=== PATIENT | female | born 1995 | race Two or more races ===

== ENCOUNTER 2025-02-27 06:52 | Inpatient (IN) | payer MEDICAID, SELFPAY ==
[2025-02-27] VITALS (36 sets, daily range): BP systolic 105–143; BP diastolic 56–92; PULSE 77–114; RESP 16–98; TEMP 36.6–37.2; O2SAT 96–100; BMI 33.7
[2025-02-27 07:48] LABS: Basophils # (Auto) 0.1 Thou/mm3 (0.0-0.2); Basophils % (Auto) 1 % (0-2.5); Eosinophils # (Auto) 0.2 Thou/mm3 (0.0-0.5); Eosinophils % (Auto) 2 % (0-10); Hematocrit 38.8 % (36.0-46.0); Hemoglobin 12.6 g/dL (12.0-16.0); Immature Granulocytes Auto 0.18 Thou/mm3 (0.00-0.00); Lymphocytes # (Auto) 2.5 Thou/mm3 (1.0-4.8); Lymphocytes % (Auto) 25 % (10-50); Mean Corpuscular HGB Conc 32.5 g/dl (31.0-37.0); Mean Corpuscular Hemoglobin 24.6 pg (25.0-35.0); Mean Corpuscular Volume 76 fL (80-100); Monocytes # (Auto) 0.7 Thou/mm3 (0.0-0.8); Monocytes % (Auto) 7 % (0-12); Neutrophils # (Auto) 6.4 Thou/mm3 (1.8-7.7); Neutrophils % (Auto) 64 % (37-80); Nucleated Red Blood Cell # 0.00 Thou/mm3 (0.00-0.00); Nucleated Red Blood Cell % 0 /100 WBC (0); Platelet Count 324 Thou/mm3 (140-440); RDW Standard Deviation 71.7 fL (36.4-46.3); Red Blood Count 5.12 Miln/mm3 (4.00-5.20); White Blood Count 10.1 Thou/mm3 (3.6-11.0)
--- NOTE | 2025-02-27 08:42 | PD.LDHP ---
Documentation for date of: 02/27/25 OB Labor/Induct. HPI History of Present Illness Chief complaint: labor : 3 Para: 2 Term pregnancies: 2 pregnancies: 0 Living children: 2 History of Abortions: Spontaneous and Elective: 0 History of Vaginal deliveries: 2 History of sections: No History of : No Date of last menstrual period: 06/26/24 DARYL: 03/02/25 Gestational Age (weeks): 39 Gestational Age (days): 4 Gestational age based on last menstrual period: 35 History of present illness: 29 years old , patient of Dr Patel , comes at % cm dilation in labor Comments: patient states GBS is negative / confirmation done and is negative in Feb 2025 and she goes fast in active labor History of Present Dating criteria: other (per records from MD office ) Adequate Care: Yes Obstetrical complications: other (treated Chlamydia in august 2024 and negative in september 2024) Medical complications: none Labs Maternal Blood Type: O Pos Labs: Positive: Rubella Titre, Negative: RPR, Hepatitis B, HIV, Chlamydia and Gonorrhea and Unknown: Herpes Type 1, Herpes Type 2, Group Beta Strep and Covid-19 Review of Systems Review of Systems Systems Reviewed: All systems reviewed, normal except as documented Past Medical History Surgical History SURGICAL: Negative Section Meds Home Medications and Allergies Home Medications ?Medication ?Instructions ?Recorded ?Confirmed ?Type prenat.vits,matilda,[id number] 1 tab PO QDAY 05/15/20 02/27/25 History ferric maltol 30 mg capsule 30 mg PO BID 02/27/25 02/27/25 History ([place]) Allergies Allergy/AdvReac Type Severity Reaction Status Date / Time No Known Allergies Allergy Verified 02/27/25 07:21 OB Exam Physical Exam Vital signs: Temp Pulse Resp BP Pulse Ox O2 Del Method 97.8 F 82 18 119/59 L 100 Room Air 02/27/25 07:40 02/27/25 08:41 02/27/25 07:40 02/27/25 08:41 02/27/25 07:07 02/27/25 07:40 Narrative: Size equal to dates uterus non tender regular/ contractions non tender FHR is category 1 feta presentation is vertex cervix now 8 cm and intact , station -2 OB Results Labs 02/27/25 07:20 Labs: Short CBC 02/27/25 Range/Units 07:20 WBC 10.1 (3.6-11.0) Thou/mm3 Hgb 12.6 (12.0-16.0) g/dL Hct 38.8 (36.0-46.0) % Plt Count 324 (140-440) Thou/mm3 OB Assessment & Plan Assessment and Plan (1) Active labor at term: Status: Acute Additional Plan Induction method: none Plan: anticipate NVD Additional Plan Comment: 29 years old at 39.4 weeksin spontaneous labor, GBS negative , O Positive , Chlamydia treated in this and post treatment negative , patient progressing well .Anticipate vaginal delivery . Patient declines epidural
[2025-02-27] MEDS: OXYTOCIN in NS 20 units 20 UNIT/1,000 ML BAG 125 UNIT IV (09:42)
[2025-02-27] MEDS: LIDOCAINE HCL 1% 20 ML VIAL INFL (09:45)
[2025-02-27] MEDS: BENZO/LANO/ALOE (Dermoplast) 60 GM CAN 1 SPRAY TOP (09:50)
[2025-02-27] MEDS: IBUPROFEN TAB 400 MG TABLET 800 MG PO (09:58)
--- NOTE | 2025-02-27 10:26 | OBDSUM_ITS ---
Data ([facility]) Data Hx Section: No Maternal Blood Type: O Pos Rubella Titre: Positive RPR: Non-reactive Labs: Negative: HIV and Group Beta Strep : 3 Term: 2 : 0 Livin Abortions: Spontaneous & Theraputic: 0 Delivery Data ([facility]) Labor Data Initiation of labor: Spontaneous Induction/Augmentation Agent: Artificial ROM ROM date: 02/27/25 ROM time: 09:36 Amniotic membrane rupture type: Artificial Amniotic fluid description: Clear Delivery Data EDC: 03/02/25 Onset of labor date: 02/27/25 Onset of labor time: 04:00 Complete dilation date: 02/27/25 Complete dilation time: 09:36 delivery date: 02/27/25 [place] delivery time: 09:41 Gestational age (weeks): 39 Gestational age (days): 4 Placenta delivery date: 02/27/25 Placenta delivery time: 09:47 Stage 1 total time: Labor - Stage 1 Duration 5 hours and 36 minutes Delivered by: Roma Lyon Delivery nurse: [email or web address] Neworn nurse: [email or web address] Gem Technician at delivery: No Support person(s) at delivery: FOB Delivery Method Delivery method: Normal Vaginal Delivery Presentation: Vertex position: CECE Anesthesia Type Anesthesia Type: Local Delivery Room Medications Delivery room medications: Pitocin 20 u IV Placenta Placenta delivery description: Spontaneous Cord blood sent to lab: Yes cord blood collection: Cord Blood Type Episiotomy Episiotomy description: None Lacerations #1: Perineal: 1st degree Perineal repair Sutures used for repair: 3.0 Vicryl EBL Estimated blood loss (ml): 150 Umbilical Cord cord description: 3 Vessels Complications Complications: none [place] Data ([facility]) Data order: 1 [place]'s gender: Female Identification band number: [id number] weight (gms): 3185 g Weight (pounds): 7 lbs and 0.3 ozs length: 52.07 cm 1 minute: 7 5 minutes: 9
[2025-02-27 11:16] LABS: Syphilis Nonreactive (Nonreactive)
[2025-02-27 17:13] LABS: Basophils # (Auto) 0.1 Thou/mm3 (0.0-0.2); Basophils % (Auto) 0 % (0-2.5); Eosinophils # (Auto) 0.1 Thou/mm3 (0.0-0.5); Eosinophils % (Auto) 1 % (0-10); Hematocrit 35.0 % (36.0-46.0); Hemoglobin 11.1 g/dL (12.0-16.0); Immature Granulocytes Auto 0.14 Thou/mm3 (0.00-0.00); Lymphocytes # (Auto) 1.9 Thou/mm3 (1.0-4.8); Lymphocytes % (Auto) 13 % (10-50); Mean Corpuscular HGB Conc 31.7 g/dl (31.0-37.0); Mean Corpuscular Hemoglobin 24.3 pg (25.0-35.0); Mean Corpuscular Volume 77 fL (80-100); Monocytes # (Auto) 0.9 Thou/mm3 (0.0-0.8); Monocytes % (Auto) 6 % (0-12); Neutrophils # (Auto) 11.3 Thou/mm3 (1.8-7.7); Neutrophils % (Auto) 78 % (37-80); Nucleated Red Blood Cell # 0.00 Thou/mm3 (0.00-0.00); Nucleated Red Blood Cell % 0 /100 WBC (0); Platelet Count 297 Thou/mm3 (140-440); Red Blood Count 4.56 Miln/mm3 (4.00-5.20); White Blood Count 14.4 Thou/mm3 (3.6-11.0)
[2025-02-27] MEDS: ACETAMINOPHEN 325 MG TABLET PO (18:08)
[2025-02-28 00:31] VITALS: BP 106/71; PULSE 85; RESP 18; TEMP 36.9; O2SAT 95
[2025-02-28 04:11] VITALS: BP 103/67; PULSE 85; RESP 18; TEMP 36.9; O2SAT 95
--- NOTE | 2025-02-28 08:30 | ESPR_ITS ---
Subjective Subjective Interval history: The patient is a 29-year-old G3 now P3003 status post vaginal delivery 02/27/2025 at about 940 1 in the morning. She delivered by Dr. Lyon. She usually sees Dr Patel. She went natural and did not have an epidural. She states she had a small number of sutures. This morning she is resting comfortably in bed. Father the baby is at bedside as is her baby daughter. Patient states she is ambulating, voiding, passing flatus ,tolerating a general diet and she is breast-feeding. She would like to go home. Predelivery hemoglobin is 12.6 postdelivery hemoglobin 11.1. Exam Vital Signs Temp Pulse Resp BP Pulse Ox O2 Del Method 98.4 F 85 18 103/67 95 Room Air 02/28/25 04:11 02/28/25 04:11 02/28/25 04:11 02/28/25 04:11 02/28/25 04:11 02/28/25 04:11 Narrative Exam Patient is alert and orient x 3 in no apparent distress Fundus is firm at umbilicus Extremities show no significant edema or erythema Objective Labs 02/27/25 16:18 Labs: Laboratory Results - last 24 hr 02/27/25 02/27/25 07:20 16:18 WBC 14.4 H D RBC 4.56 Hgb 11.1 L Hct 35.0 L MCV 77 L MCH 24.3 L MCHC 31.7 RDW Std Deviation TNP Plt Count 297 Neut % (Auto) 78 Lymph % (Auto) 13 [place] % (Auto) 6 Eos % (Auto) 1 Baso % (Auto) 0 Neut # (Auto) 11.3 H Lymph # (Auto) 1.9 [place] # (Auto) 0.9 H Eos # (Auto) 0.1 Baso # (Auto) 0.1 Immature Gran # (Auto) 0.14 H Absolute Nucleated RBC 0.00 Immature Gran % 1 H Nucleated RBC % 0 Syphilis Serology Nonreactive Blood Type O Positive Antibody Screen NEGATIVE Assessment & Plan Problem List (1) care following vaginal delivery: Problem details: Patient is doing well. Discharged home post day #1 in stable condition discharge instructions given including pelvic rest x 6 weeks. Follow-up with Dr Patel in 4 to 6 weeks or as needed. Status: Acute Time Spent With Patient Time: Total time spent is greater than 50% in coordination of care (as documented) at patient's floor/unit and/or counseling patient: Time with patient: less than 15 minutes
--- NOTE | 2025-02-28 08:37 | ESDS_ITS ---
DS: Providers Provider Date of admission: 02/27/25 07:24 Primary care physician: Physician No Primary/Family Admitting Provider: Roma Lyon MD Attending Provider on Admission: Roma Lyon MD Consults: 02/27/25 10:29 Referral Routine Comment: Attending Provider on DC: Donita [facility] MD ([facility]) Discharging Provider: Donita Thomas MD ([facility]) Anticipated date of discharge: 02/28/25 DS: Diagnosis Discharge Diagnosis (1) care following vaginal delivery: Status: Acute Assessment & Plan: Patient is doing well. Discharge instructions get in. Follow-up with Dr Sandra paul in 6 weeks. Problem List Completed Was Problem List Reviewed/Reconciled?: Yes Summary/Hosp Course Brief History: The patient is a 29-year-old -0-0-2 presented at 39-4/7 weeks in active labor. She had an EDC of 03/02/2025. She was admitted by Dr. Lyon. Please see history and physical for further details. Hospital course: Patient was admitted she went on to deliver 02/27/2025 at about 940 in the morning. She delivered by Dr. Lyon. Please see delivery note for further details. By day #1 patient was doing well she was ambulating voiding tolerating a general diet. She was passing flatus and breast-feeding. She was discharged home day #1 in stable condition. Peripartum Data Delivery Method: Normal Vaginal Delivery Episiotomy Description: None complications: none Status at Discharge Cognitive/behavioral status at discharge: Patient's alert and orient x 3 no apparent distress Functional status at discharge: independent ambulation Overall status at discharge: patient is progressing back to baseline Time Spent with Patient Time attestation: Total time spent providing and/or coordinating discharge services: Time spent: Less than 30 minutes Specific discharge activities: Pelvic rest x 6 weeks. Call with heavy bleeding fevers or depression. Follow-up with Dr Patel in 4 to 6 weeks. Exam Vital Signs Temp Pulse Resp BP Pulse Ox O2 Del Method 98.4 F 85 18 103/67 95 Room Air 02/28/25 04:11 02/28/25 04:11 02/28/25 04:11 02/28/25 04:11 02/28/25 04:11 02/28/25 04:11 Narrative Exam Fundus firm, nontender at umbilicus Extremities show no significant edema or erythema Discharge Plan Plan Patient Disposition: HOME (Self Care) Disposition Comment: Stable Prescriptions/Referrals Prescriptions/Med Rec: New ibuprofen 600 mg Tablet 600 mg PO Q6HR PRN (Reason: Pain Or Fever > 101) Qty: 60 0RF Continued Accrufer 30 mg capsule 30 mg PO BID Patient Comments: Take 1 capsule by mouth twice a day on an empty stomach Discontinued acetaminophen 500 mg capsule 500 mg PO QID PRN (Reason: pain) Qty: 30 0RF No Action prenat.vits,matilda,vxx-ojar-hmlka Tablet 1 tab PO QDAY Referrals: No Primary/Family,Physician [Primary Care Provider] Patient/Caregiver Discharge Instructions Discharge Activity: activity as tolerated Other Discharge Activity Instructions:: Pelvic rest x 6 weeks Other Discharge Diet Instructions: General diet as tolerated Education Materials: After a Vaginal , After Delivery Bradley Concerns, Breast Care After , : Caring for Yourself, Feel Healthy After Print Language: [place]ian Activity Restrictions/Additional Instructions: Pelvic rest x 6 weeks. No intercourse, tampons, douching, or bathtubs x 6 weeks. Call with heavy bleeding, fevers or depression. Stand Alone Forms: [employer] Award Info., Patient Portal Info Letter Discharge Order Discharge Orders: Discharge (Routine); Ordered 02/28/25 Ordered By: Donita Thomas ([facility]) Planned Discharge Date 02/28/25
[2025-02-28 08:40] VITALS: BP 107/73; PULSE 81; RESP 16; TEMP 36.6; O2SAT 98
== END 2025-02-28 12:47 | disposition home or self-care (01) | DRG 560 ==
LOC: S4SX 07:49 → S4NX 12:50
PROVIDERS: Admitting Provider Obstetrics & Gynecology; Visit Provider Obstetrics & Gynecology
DX: O70.0 First degree perineal laceration during delivery (principal); Z37.0 Single live birth; Z3A.39 39 weeks gestation of pregnancy
CPT/HCPCS: 36415; 59025; 59409; 85025; 86780; 86850; 86900; 86901; 94762; J2590; J3490; S0191; A9270